=== PATIENT | female | born 1985 | race American Indian/Alaskan Native ===

== ENCOUNTER 2018-11-10 19:42 | Emergency (ER) | payer SELFPAY ==
[2018-11-10] MEDS ORDERED: NACL 0.9% 1000 ML 1,000 ML IV ONE (20:27)
--- NOTE | 2018-11-10 20:31 | Emergency Department Report ---
Chief Complaint: Abdominal Pain Stated Complaint: VOMITTING/DIARRHEA Time Seen by Provider: 11/10/18 20:27 - HPI History of Present Illness: This is a 33 y.o. female that presents with n/v/d and abdominal pain x 3 days. Patient states she took female enhancement medication Friday and ate ox tails for dinner and been sick every since. - Exam Vital Signs: Vital Signs 11/10/18 20:14 Temperature 98.3 F Pulse Rate 87 Respiratory 16 Rate Blood Pressure 139/89 [Left] O2 Sat by Pulse 95 Oximetry MSE screening note: Focused history and physical exam performed. Due to findings the following was ordered: labs ED Disposition for MSE Condition: Stable Instructions: Abdominal Pain (ED)
[2018-11-10 21:16] LABS: Basophils # (Auto) 0.1 K/mm3 (0.0-0.1); Basophils % (Auto) 1.3 % (0.0-1.8); Eosinophils % (Auto) 0.7 % (0.0-4.3); Hematocrit 41.3 % (30.3-42.9); Hemoglobin 14.3 gm/dl (10.1-14.3); Lymphocytes # (Auto) 2.4 K/mm3 (1.2-5.4); Lymphocytes % (Auto) 44.1 % (13.4-35.0); Mean Corpuscular HGB Conc 35 % (30-34); Mean Corpuscular Hemoglobin 32 pg (28-32); Mean Corpuscular Volume 92 fl (79-97); Monocytes # (Auto) 0.6 K/mm3 (0.0-0.8); Monocytes % (Auto) 11.8 % (0.0-7.3); Platelet Count 264 K/mm3 (140-440); Red Cell Distribution Width 12.8 % (13.2-15.2)
[2018-11-10 21:43] LABS: Alanine Aminotransferase 18 units/L (7-56); Albumin 4.3 g/dL (3.9-5); BUN/Creatinine Ratio 17; Blood Urea Nitrogen 10 mg/dL (7-17); Calcium 8.9 mg/dL (8.4-10.2); Hemolysis Index 9
[2018-11-10 21:46] LABS: Amorphous Crystals,Urine Few; Bacteria,Urine 1+ /HPF (Negative); Bilirubin,Urine NEG (Negative); Blood,Urine SM (Negative); Calcium Oxalate Crystals,Urine 1+; Color,Urine Amber (Yellow); Mucus,Urine 3+ /HPF; Protein,Urine <15 mg/dL mg/dL (Negative); Urobilinogen,Urine < 2.0 mg/dL (<2.0)
[2018-11-10 21:49] LABS: HCG Qualitative,Urine Negative (Negative); WBC,Urine < 1.0 /HPF (0.0-6.0)
[2018-11-10] MEDS ORDERED: ZOFRAN IV ONE (22:56)
--- NOTE | 2018-11-10 23:28 | Emergency Department Report ---
ED N/V/D HPI - General Chief complaint: Abdominal Pain Stated complaint: VOMITTING/DIARRHEA Time Seen by Provider: 11/10/18 20:27 Source: patient Mode of arrival: Ambulatory Limitations: No Limitations - History of Present Illness Initial comments: Pt is a 33 yo female who presents to the ED with c/o N/V/D that began 4 days ago. She states that she drank a [employer] sexual performance drink and began having the symptoms after that. The patient states she has diffuse cramping in the abdomen but no pain. She denies any sick contacts, water from a different source, abx, recent travel, or new foods. The patient states she has not been able to tolerate much PO intake. She denies any fever or blood in the stool or vomit. - Related Data Previous Rx's Medication Instructions Recorded Last Taken Type Ondansetron [Zofran Odt] 4 mg PO Q8HR PRN #10 tab.rapdis 11/10/18 Unknown Rx Allergies Allergy/AdvReac Type Severity Reaction Status Date / Time Penicillins Allergy Anaphylaxis Verified 04/25/14 15:26 ED Review of Systems ROS: Stated complaint: VOMITTING/DIARRHEA Other details as noted in HPI Comment: All other systems reviewed and negative ED Past Medical Hx - Past Medical History Additional medical history: PCOS - Surgical History Past Surgical History?: No - Social History Smoking Status: Current Every Day Smoker Substance Use Type: Alcohol - Medications Home Medications: Home Medications Medication Instructions Recorded Confirmed Last Taken Type Ondansetron [Zofran Odt] 4 mg PO Q8HR PRN #10 tab.rapdis 11/10/18 Unknown Rx ED Physical Exam - General Limitations: No Limitations General appearance: alert, in no apparent distress - Head Head exam: Present: atraumatic, normocephalic - Eye Eye exam: Present: normal appearance - ENT ENT exam: Present: mucous membranes moist - Respiratory Respiratory exam: Present: normal lung sounds bilaterally. Absent: respiratory distress, wheezes, rales, rhonchi, stridor, chest wall tenderness, accessory muscle use, decreased breath sounds, prolonged expiratory - Cardiovascular Cardiovascular Exam: Present: regular rate, normal rhythm, normal heart sounds. Absent: systolic murmur, rubs, gallop - GI/Abdominal GI/Abdominal exam: Present: soft, hyperactive bowel sounds (mildly ). Absent: distended, tenderness, guarding, rebound, rigid - Neurological Exam Neurological exam: Present: alert, oriented X3 - Psychiatric Psychiatric exam: Present: normal affect, normal mood - Skin Skin exam: Present: warm, dry, intact ED Course Vital Signs 11/10/18 11/10/18 11/10/18 20:14 20:26 22:10 Temperature 98.3 F 98.3 F 99.1 F Pulse Rate 87 87 82 Respiratory 16 16 17 Rate Blood Pressure 139/89 Blood Pressure 139/89 132/87 [Left] O2 Sat by Pulse 95 95 99 Oximetry ED Medical Decision Making - Lab Data Result diagrams: 11/10/18 20:54 11/10/18 20:54 - Medical Decision Making Pt is a 33 yo female who presents to the ED with c/o N/V/D that began 4 days ago. She states that she drank a [employer] performance drink and began having the symptoms after that. The patient states she has diffuse cramping in the abdomen but no pain. She denies any sick contacts, water from a different source, abx, recent travel, or new foods. The patient states she has not been able to tolerate much PO intake. She denies any fever or blood in the stool or vomit. Pt given zofran while in the ED has had no further episodes of emesis. Pt able to tolerate PO intake while in the ED. VSS. Labs are WNL. UA is normal. Pt given 1L of fluids while in triage, does not appear to be dehydrated. Will give pt zofran to go home with. Advised to continue to drink plenty of fluids and eat a bland diet. Follow up with PCP in the next 2 days. Return to the ED for any new or worsening symptoms. Critical care attestation.: If time is entered above; I have spent that time in minutes in the direct care of this critically ill patient, excluding procedure time. ED Disposition Clinical Impression: Nausea vomiting and diarrhea Disposition: DC-01 TO HOME OR SELFCARE Is pt being admited?: No Does the pt Need Aspirin: No Condition: Stable Instructions: Acute Nausea and Vomiting (ED) Additional Instructions: Follow up with your primary care doctor in the next 2 days. Take medication as prescribed as needed for nausea/vomiting. Continue to drink plenty of fluids, eat a bland diet. Return to the emergency room for any new or worsening symptoms. Prescriptions: Ondansetron [Zofran Odt] 4 mg PO Q8HR PRN #10 tab.rapdis PRN Reason: Nausea And Vomiting Referrals: PADMINI HUNTER MD [Primary Care Provider] - 2-3 Days Time of Disposition: 23:28 Print Language: WELSH
[2018-11-10 23:52] VITALS: BP 137/90
== END 2018-11-10 23:40 | disposition home or self-care (01) ==
LOC: ED 19:42
DX: R11.2 Nausea with vomiting, unspecified (principal); R19.7 Diarrhea, unspecified; F17.200 Nicotine dependence, unspecified, uncomplicated; E28.2 Polycystic ovarian syndrome; Z88.0 Allergy status to penicillin
CPT/HCPCS: 36415; 80053; 81001; 81025; 85025; 96361; 96374; 99283; J2405; J7030